=== PATIENT | female | born 1985 | race Caucasian/White ===

== ENCOUNTER 2018-09-04 12:55 | Emergency (ER) | payer MEDICAID ==
[~2018-09-04] VITALS: Ht 157.5 cm; Wt 79.4 kg
[~2018-09-04 12:55] MED LIST: ALBU90OI INH; ALPR1 PO; AMLO10 PO; AMOX500 PO; AMOX875 PO; AZIT250 PO; CEPH125SU PO; CYCL10 PO; Esgic Tablet1 EACH PO; HYDACE5 PO; HYDCHL25 PO; HYDPAM25 PO; HYDR1TAB94 PO; LABE100 PO; METO50ER PO; MULVITMINE PO; NAPR500 PO; Norco 5-325 Ta1 EACH PO; OMEP20ER PO; PHENA200 PO; PRED20 PO; PSEU30 PO; SERT50 PO; TRAM50 PO; Veetids 500500 MG PO; [UNRECOGNIZED DRUG - REMARK]
[2018-09-04] MEDS ORDERED: LOSARTAN-HCTZ1 EACH PO ×2 (13:13→13:19)
[2018-09-04] MEDS ORDERED: METO25ER PO (13:14)
[2018-09-04] MEDS ORDERED: Toprol Xl25 MG PO (13:19)
[2018-09-04] MEDS ORDERED: Norvasc5 MG PO (13:19)
== END 2018-09-04 13:40 | disposition home or self-care (01) ==
LOC: ER 12:55
DX: I10 Essential (primary) hypertension (principal); Z76.0 Encounter for issue of repeat prescription; Z88.2 Allergy status to sulfonamides; Z88.5 Allergy status to narcotic agent; Z79.899 Other long term (current) drug therapy; F41.9 Anxiety disorder, unspecified; Z87.891 Personal history of nicotine dependence
CPT/HCPCS: 99281

== ENCOUNTER 2019-03-17 20:23 | Emergency (ER) | payer OTHER ==
[~2019-03-17] VITALS: Ht 157.5 cm; Wt 77.6 kg
[~2019-03-17 20:23] MED LIST changes: +LOSARTAN-HCTZ1 EACH PO; +METO25ER PO; +Norvasc5 MG PO; +Toprol Xl25 MG PO
[2019-03-17] MEDS ORDERED: Amoxicillin500 MG PO (20:36)
== END 2019-03-17 20:43 | disposition home or self-care (01) ==
LOC: ER 20:23
DX: K04.7 Periapical abscess without sinus (principal); K02.9 Dental caries, unspecified; I10 Essential (primary) hypertension; F17.200 Nicotine dependence, unspecified, uncomplicated; Z88.2 Allergy status to sulfonamides; Z88.5 Allergy status to narcotic agent; Z79.899 Other long term (current) drug therapy
CPT/HCPCS: 99282

== ENCOUNTER → 2019-06-11 | Outpatient (CLI) | payer OTHER ==
[~2019-06-11] MED LIST changes: +Amoxicillin500 MG PO
[2019-06-11 14:19] LABS: BASOPHILS ABSOLUTE AUTO 0.08 K/mm3 (0.00-0.23); BASOPHILS PERCENT AUTO 1 % (0-2); EOSINOPHILS ABSOLUTE AUTO 0.43 K/mm3 (0.00-0.68); EOSINOPHILS PERCENT AUTO 4 % (0-6); Hematocrit 41.3 % (33.0-51.0); Hemoglobin 13.8 g/dL (11.5-16.0); IMMATURE GRAN ABSOLUTE AUTO 0.03 K/mm3 (0.00-0.10); IMMATURE GRAN PERCENT AUTO 0 % (0-1); LYMPHOCYTES ABSOLUTE AUTO 1.52 K/mm3 (0.84-5.20); LYMPHOCYTES PERCENT AUTO 14 % (21-46); MONOCYTES ABSOLUTE AUTO 0.67 K/mm3 (0.16-1.47); MONOCYTES PERCENT AUTO 6 % (4-13); Mean Corpuscular HGB 28.5 pg (26.0-34.0); Mean Corpuscular HGB Conc 33.4 g/dL (31.5-36.5); Mean Corpuscular Volume 85 fL (80-100); Mean Platelet Volume 8.9 fL (9.1-12.4); NEUTROPHILS ABSOLUTE AUTO 7.84 K/mm3 (1.96-9.15); NEUTROPHILS PERCENT AUTO 74 % (41-73); Platelet Count 480 K/mm3 (150-400); RDW Coefficient Variation 14.6 % (11.7-14.2); RDW Standard Deviation 45.1 fL (35.1-46.3); Red Blood Cell Count 4.85 M/mm3 (3.80-5.20); White Blood Cell Count 10.57 K/mm3 (4.00-11.30)
[2019-06-11 15:08] LABS: Alanine Aminotransfer (ALT/SGP 25 U/L (12-78); Albumin, Blood 3.9 g/dL (3.4-5.0); Alk Phos 81 U/L (50-136); Anion Gap 6 mmol/L (6-16); Aspartate Aminotrans (AST/SGOT 14 U/L (12-37); Bilirubin, Total 0.3 mg/dL (0.1-1.0); Blood Urea Nitrogen 12 mg/dL (8-24); CO2, Blood 24 mmol/L (21-32); Calcium, Blood 8.9 mg/dL (8.5-10.1); Chloride, Blood 110 mmol/L (98-108); Creatinine, Blood 0.63 mg/dL (0.40-1.00); Globulin, Blood 3.8 g/dL (2.2-4.0); Glomerular Filtration Rate >60 (60-); Glucose, Blood 110 mg/dL (70-99); Sodium, Blood 140 mmol/L (136-145); Total Protein, Blood 7.7 g/dL (6.4-8.2)
[2019-06-11 15:14] LABS: Thyroid Stimulating Hormone 0.985 uIU/mL (0.360-4.800); Troponin I <0.015 ng/mL (0.000-0.040)
== END | disposition home or self-care (01) ==
LOC: LAB EV 14:14 → LAB SHORT 14:14
PROVIDERS: Physician Assistant
DX: R07.89 Other chest pain (principal)
CPT/HCPCS: 80053; 84443; 84484; 85025

== ENCOUNTER → 2019-09-11 | Outpatient (CLI) | payer OTHER ==
[2019-09-11 15:31] LABS: Alanine Aminotransfer (ALT/SGP 23 U/L (12-78); Albumin/Globulin Ratio 1.1 (0.8-1.8); Alk Phos 88 U/L (40-126); Anion Gap 10 mmol/L (6-16); Aspartate Aminotrans (AST/SGOT 14 U/L (12-37); Bilirubin, Total 0.4 mg/dL (0.1-1.0); Blood Urea Nitrogen 7 mg/dL (8-24); Bun/Creatinine Ratio 7.2 (12.0-20.0); CO2, Blood 29 mmol/L (21-32); Calcium, Blood 9.4 mg/dL (8.5-10.1); Chloride, Blood 105 mmol/L (98-108); Creatinine, Blood 0.97 mg/dL (0.40-1.00); Globulin, Blood 3.8 g/dL (2.2-4.0); Glomerular Filtration Rate >60 (60-); Glucose, Blood 144 mg/dL (70-99); Potassium, Blood 3.3 mmol/L (3.5-5.5); Sodium, Blood 144 mmol/L (136-145); Total Protein, Blood 7.8 g/dL (6.4-8.2)
== END | disposition home or self-care (01) ==
LOC: LAB EV 15:15 → LAB SHORT 15:15
PROVIDERS: Physician Assistant
DX: I10 Essential (primary) hypertension (principal)
CPT/HCPCS: 80053

== ENCOUNTER 2020-01-22 17:06 | Emergency (ER) | payer OTHER ==
[~2020-01-22] VITALS: Ht 154.9 cm; Wt 72.6 kg
[2020-01-22] MEDS ORDERED: KETO10 PO (18:59)
[2020-01-22] MEDS ORDERED: AMOCLA875 PO (18:59)
== END 2020-01-22 19:10 | disposition home or self-care (01) ==
LOC: ER 17:06
DX: K04.7 Periapical abscess without sinus (principal); I10 Essential (primary) hypertension; F41.9 Anxiety disorder, unspecified; F17.200 Nicotine dependence, unspecified, uncomplicated; Z88.2 Allergy status to sulfonamides; Z88.5 Allergy status to narcotic agent; Z79.899 Other long term (current) drug therapy
CPT/HCPCS: 99282

== ENCOUNTER 2022-06-24 20:33 | Emergency (ER) | payer OTHER ==
[~2022-06-24] VITALS: Ht 154.9 cm; Wt 63.5 kg
[~2022-06-24 20:33] MED LIST changes: +AMOCLA875 PO; +KETO10 PO
[2022-06-24] MEDS ORDERED: SERT50 PO (22:38)
[2022-06-24] MEDS ORDERED: HYDPAM25 PO (22:50)
== END 2022-06-24 22:44 | disposition home or self-care (01) ==
LOC: ER 20:33
DX: F32.A Depression, unspecified (principal); F41.9 Anxiety disorder, unspecified; I10 Essential (primary) hypertension; F17.200 Nicotine dependence, unspecified, uncomplicated; Z88.2 Allergy status to sulfonamides; Z88.5 Allergy status to narcotic agent; Z79.899 Other long term (current) drug therapy
CPT/HCPCS: A9270

== ENCOUNTER 2022-07-29 22:41 | Emergency (ER) | payer OTHER ==
[~2022-07-29] VITALS: Ht 157.5 cm; Wt 60.5 kg
[2022-07-30] MEDS ORDERED: SERT50 PO (01:52)
[2022-07-30] MEDS ORDERED: HYDHCL25 PO (01:52)
[2022-07-30] MEDS ORDERED: METO25ER PO (01:52)
== END 2022-07-30 02:02 | disposition home or self-care (01) ==
LOC: ER 22:41
DX: Z76.0 Encounter for issue of repeat prescription (principal); I10 Essential (primary) hypertension; F17.200 Nicotine dependence, unspecified, uncomplicated; Z88.2 Allergy status to sulfonamides; Z88.5 Allergy status to narcotic agent; Z79.899 Other long term (current) drug therapy
CPT/HCPCS: 99281

== ENCOUNTER 2023-03-09 12:20 | Emergency (ER) | payer OTHER ==
[~2023-03-09] VITALS: Ht 154.9 cm; Wt 56.2 kg
[~2023-03-09 12:20] MED LIST changes: +HYDHCL25 PO
[2023-03-09] MEDS ORDERED: HYDPAM25 PO (13:17)
== END 2023-03-09 13:40 | disposition home or self-care (01) ==
LOC: ER 12:20
DX: F15.10 Other stimulant abuse, uncomplicated (principal); F41.9 Anxiety disorder, unspecified; I10 Essential (primary) hypertension; F17.200 Nicotine dependence, unspecified, uncomplicated; Z88.2 Allergy status to sulfonamides; Z88.5 Allergy status to narcotic agent; Z79.899 Other long term (current) drug therapy
CPT/HCPCS: 99282; Q0177

== ENCOUNTER 2023-06-02 15:37 | Emergency (ER) | payer OTHER ==
[~2023-06-02] VITALS: Ht 154.9 cm; Wt 59.0 kg
[2023-06-02 15:45] VITALS: BP 203/89
[2023-06-02] MEDS ORDERED: HYDHCL25 PO (15:52)
[2023-06-02] MEDS ORDERED: METO25ER PO (15:52)
== END 2023-06-02 15:51 | disposition home or self-care (01) ==
LOC: ER 15:37
DX: I10 Essential (primary) hypertension (principal); F41.9 Anxiety disorder, unspecified; Z76.0 Encounter for issue of repeat prescription; F17.200 Nicotine dependence, unspecified, uncomplicated; Z88.2 Allergy status to sulfonamides; Z88.5 Allergy status to narcotic agent; Z79.899 Other long term (current) drug therapy
CPT/HCPCS: 99281